=== PATIENT | female | born 1975 ===

== ENCOUNTER 2022-12-10 05:43 | Day surgery (SDC) | payer OTHER ==
[~2022-12-10] VITALS: Ht 162.6 cm; Wt 54.4 kg
== END 2022-12-10 12:00 | disposition home or self-care (01) ==
LOC: CIR.AMB 05:43 → ADM 11:45 → CIR.AMB 12:00
PROVIDERS: ATTEND Surgery
DX: K81.1 Chronic cholecystitis (principal); Z20.822 Contact with and (suspected) exposure to COVID-19

== ENCOUNTER 2022-12-12 09:43 | Emergency (ER) | payer OTHER ==
[~2022-12-12] VITALS: Ht 162.6 cm; Wt 54.4 kg
[2022-12-12] MEDS ORDERED: NAPROXEN SODIU550 MG PO (09:59)
[2022-12-12] MEDS ORDERED: CEFADROXIL500 MG PO (10:00)
== END 2022-12-12 13:47 | disposition home or self-care (01) ==
LOC: ER 09:43
PROVIDERS: Emergency Medicine
DX: R50.9 Fever, unspecified (principal); Z20.822 Contact with and (suspected) exposure to COVID-19; Z98.890 Other specified postprocedural states